=== PATIENT | female | born 1990 | race African-American/Black ===

== ENCOUNTER 2016-10-16 07:47 | Day surgery (SDC) | payer OTHER ==
[~2016-10-16] VITALS: Ht 162.6 cm; Wt 74.8 kg
[~2016-10-16 07:47] MED LIST: ACETAMINOPHEN INTRAVENOUS 100 ML IV ONE; CYCL10TA2 PO; DICY10CA53 PO; DOXY100C14 PO; FAMO20TA5 PO; FENTANYL PF 100 MCG/2 ML VIAL. IV PRN; HYDROMORPHONE 2 MG/ML VIAL. IV PRN; IV RINGERS,LACTATED 1000ML 1,000 ML IV SCH; LIDOCAINE 1% 1 ML SYRINGE. ID PRN; MOME13HF2 IH; MORPHINE SULFATE 2 MG/ML DISP.SYRIN. IV PRN; ONDA4TAB10 SL; ONDA4TAB7 PO; ONDANSETRON PF 4 MG/2 ML VIAL. IV PRN; PROAIR HFA8.5 GM INH; PROCHLORPERAZINE 10 MG/2 ML VIAL. IV PRN
[2016-10-16 08:22] LABS: NEG OBC UR NEG; POS OBC UR POS
[2016-10-16] MEDS ORDERED: PROPOFOL 20 ML IV ONE ×2 (08:34→09:25)
[2016-10-16] MEDS ORDERED: DEXAMETHASONE SOD PHOS 20 MG/5 ML VIAL. ONE (08:34)
[2016-10-16] MEDS ORDERED: LIDOCAINE 2% 100 MG/5 ML DISP.SYRIN. ONE (08:34)
[2016-10-16] MEDS ORDERED: FAMOTIDINE 20 MG/2 ML VIAL ONE (08:35)
[2016-10-16] MEDS ORDERED: MIDAZOLAM HCL 2 MG/2 ML VIAL. ONE (08:35)
[2016-10-16] MEDS ORDERED: ROCURONIUM 50 MG/5 ML VIAL. ONE (08:35)
[2016-10-16] MEDS ORDERED: ONDANSETRON PF 4 MG/2 ML VIAL. ONE (08:35)
[2016-10-16] MEDS ORDERED: FENTANYL PF 100 MCG/2 ML VIAL. ONE (08:35)
[2016-10-16] MEDS ORDERED: BUPIVACAINE-EPI 0.25%-1:200000 50 ML VIAL. ONE (08:39)
[2016-10-16] MEDS ORDERED: SUCCINYLCHOLINE 200 MG/10 ML VIAL. ONE (08:39)
[2016-10-16] MEDS ORDERED: SEVOFLURANE 16 TO 30 MINUTES. IH ONE (09:27)
[2016-10-16] MEDS ORDERED: SEVOFLURANE 31 TO 60 MINUTES. IH ONE (09:28)
--- NOTE | 2016-10-16 09:34 | PDOC ---
BRIEF OPERATIVE NOTE Date: Oct 16, 2016 Pre-Op Diagnosis Infected pilonidal cyst Post-Op Diagnosis Same Procedure Performed I&D Pilonidal Surgeon Jeremiah Anesthesia Type: General Blood Loss 5ml Specimens Obtained Cultures Findings As above Complications None DANIEL SHAFFER MD Oct 16, 2016 09:34
--- NOTE | 2016-10-16 09:36 | DISCH ---
DISCHARGE INSTRUCTIONS Condition on Discharge Condition on Discharge: Stable Activity After Discharge Activity Instructions for Disc: Activity as tolerated Other activity instructions: May shower in 24 hours Diet after Discharge Diet after Discharge: Regular Wound Incision Care Other wound/incision instructi: Packing needs to be changed daily Contacting the after DC Call your doctor for: If your condition worsens Follow-Up Follow up with: Dr Shaffer in 1 week 10/22 DANIEL SHAFFER MD Oct 16, 2016 09:36
--- NOTE | 2016-10-16 09:47 | OP ---
DATE OF SURGERY: 10/16/2016 PREOPERATIVE DIAGNOSIS: Infected pilonidal cyst. POSTOPERATIVE DIAGNOSIS: Infected pilonidal cyst. PROCEDURE: Incision and drainage of abscess with cultures and wound packing. INDICATIONS: The patient is a 25-year-old female who had a pilonidal cystectomy, approximately 3 years ago, has recently developed painful swelling in this area. Procedure of incision and drainage was explained to the patient in detail. Risks, benefits were also discussed including bleeding, infection. Alternatives of this procedure were also discussed with the patient who seemed to understand and gave verbal and written consent to have the procedure performed. DESCRIPTION OF PROCEDURE: The patient was taken to the operating room and placed in supine position. General anesthesia was initiated. Once the patient was asleep and intubated, she was repositioned in the prone positioning. Her buttock was prepped and draped in sterile fashion using Betadine scrub and solution. The infected pilonidal cyst was incised with 15-blade scalpel. There was copious amounts of purulent material, cultures were taken. The wound was then irrigated and suctioned dry and half-inch iodoform packing was placed, 4 x 4's and Medipore tape were applied as a dressing. The patient was repositioned in her supine position, awakened, extubated in the operating room, taken to recovery in stable condition. All sponge, instrument counts listed as correct. Estimated blood loss 5 mL. DANIEL SHAFFER MD DR: GISELA/isaura JOB#: [id number] / [id number]
[2016-10-16] MEDS ORDERED: OXYC-323 PO (10:02)
[2016-10-16] MEDS ORDERED: OXYCODONE/APAP 5/325 TABLET. PO PRN (10:15)
[2016-10-16 10:55] VITALS: BP 97/60
== END 2016-10-16 11:04 | disposition home or self-care (01) ==
LOC: SURG 07:47
PROVIDERS: ATTEND Surgery
DX: L05.01 Pilonidal cyst with abscess (principal); J45.909 Unspecified asthma, uncomplicated; E03.9 Hypothyroidism, unspecified; F41.9 Anxiety disorder, unspecified; F32.9 Major depressive disorder, single episode, unspecified; Z72.89 Other problems related to lifestyle; Z87.440 Personal history of urinary (tract) infections; Z98.890 Other specified postprocedural states
CPT/HCPCS: 10080; 81025; 87205; J0131; J0330; J1100; J1956; J2250; J2405; J2704; J3010; S0028

== ENCOUNTER 2017-01-29 09:08 | Emergency (ER) | payer OTHER ==
[~2017-01-29] VITALS: Ht 162.6 cm; Wt 68.0 kg
[~2017-01-29 09:08] MED LIST changes: -ACETAMINOPHEN INTRAVENOUS 100 ML IV ONE; -FENTANYL PF 100 MCG/2 ML VIAL. IV PRN; -HYDROMORPHONE 2 MG/ML VIAL. IV PRN; -IV RINGERS,LACTATED 1000ML 1,000 ML IV SCH; -LIDOCAINE 1% 1 ML SYRINGE. ID PRN; -MORPHINE SULFATE 2 MG/ML DISP.SYRIN. IV PRN; -ONDANSETRON PF 4 MG/2 ML VIAL. IV PRN; +OXYC-323 PO; -PROCHLORPERAZINE 10 MG/2 ML VIAL. IV PRN
[2017-01-29] MEDS ORDERED: ONDANSETRON PF 4 MG/2 ML VIAL. IV ONE (09:30)
[2017-01-29] MEDS ORDERED: IV NORMAL SALINE 1000ML BAG 1,000 ML IV SCH ×2 (09:30→10:00)
[2017-01-29 09:36] LABS: BASO # 0.1 x10^3/uL (0.0-0.2); BASO % 0 % (0-3); EOS % 0 % (0-3); HEMATOCRIT 44.7 % (36.0-47.0); HEMOGLOBIN 15.7 g/dL (12.0-15.5); LYMPH # 2.6 x10^3/uL (1.0-4.8); LYMPH % 14 % (24-48); MEAN CORPUSCULAR HEMOGLOBIN 29 pg (25-35); MEAN CORPUSCULAR HGB CONC 35 g/dL (31-37); MEAN CORPUSCULAR VOLUME 83 fL (79-100); MONO % 3 % (0-9); NEUT % 83 % (31-73); PLATELET COUNT 287 x10^3/uL (140-400); RED CELL DISTRIBUTION WIDTH 13.5 % (11.5-14.5)
--- NOTE | 2017-01-29 09:41 | ED.ADGEN ---
Past Medical History Past Medical History: Anxiety Additional Past Medical Histor: Polycystic Ovary Disease. Past Surgical History: No Surgical History Additional Past Surgical Histo: Cyst removed from lower back. Alcohol Use: Rarely Drug Use: Marijuana Adult General Chief Complaint Chief Complaint: ABDOMINAL PAIN HPI HPI Patient is a 26 year old and, history of anxiety, PCOS, who presents the emergency department via EMS with a complaint of nausea, vomiting, abdominal and chest pain that began several hours ago. Patient states that she was smoking marijuana last night around 9:00, then went to sleep. She states that she was feeling well that time. States she woke up with nausea, vomiting cramping abdominal pain and pain is radiating up into her chest. She states that this is having her previously but cannot give additional details. Patient diaphoretic, states that she has had a small bowel movement this morning, denies any gross diarrhea. No fevers, no chills, no focal weakness, numbness, tingling, headache, injuries, sick contacts, other ingestions or exposures reported. No recent travel or surgery. Denies any alcohol or other drug use, states she was only using marijuana. Review of Systems Review of Systems Constitutional: Denies fever or chills. [] Eyes: Denies change in visual acuity. [] HENT: Denies nasal congestion or sore throat. [] Respiratory: Denies cough or shortness of breath. [] Cardiovascular: Chest pain with vomiting, no edema. GI: Ramp being abdominal pain associate with nausea, vomiting, diarrhea, pain radiating up into her chest. : Denies dysuria. [] Musculoskeletal: Denies back pain or joint pain. [] Integument: Denies rash. [] Neurologic: Denies headache, focal weakness or sensory changes. [] Endocrine: Denies polyuria or polydipsia. [] Lymphatic: Denies swollen glands. [] Psychiatric: Denies depression or anxiety. [] Current Medications Current Medications Current Medications Medications (Trade) Dose Ordered Sig/Kiya Start Time Stop Time Status Last Admin Dose Admin Capsaicin (Zostrix) 1 zuri TID 01/29/17 14:00 01/29/17 14:12 DC 01/29/17 13:28 1 ZURI Haloperidol Lactate (Haldol) 5 mg 1X ONCE 01/29/17 09:45 01/29/17 09:46 DC 01/29/17 10:01 5 MG Info (Do NOT chart on this entry -- for MONITORING) 1 each PRN DAILY PRN 01/29/17 12:15 01/29/17 14:12 DC Iohexol (Omnipaque 300 Mg/ml) 75 ml 1X ONCE 01/29/17 12:00 01/29/17 12:01 DC 01/29/17 12:09 75 ML Ketorolac Tromethamine (Toradol) 10 mg 1X ONCE 01/29/17 12:00 01/29/17 12:01 DC 01/29/17 12:27 10 MG Ondansetron HCl (Zofran) 4 mg 1X ONCE 01/29/17 09:30 01/29/17 09:31 DC 01/29/17 09:22 4 MG Sodium Chloride 1,000 ml @ 1,000 mls/hr Q1H 01/29/17 10:00 01/29/17 10:59 DC 01/29/17 10:51 1,000 MLS/HR Allergies Allergies Allergies Coded Allergies Type Severity Reaction Last Updated Verified Penicillins Allergy Severe Anaphylaxis 10/15/16 Yes coconut Allergy Severe Anaphylaxis 10/15/16 Yes Physical Exam Physical Exam Constitutional: Well developed, well nourished, patient appears uncomfortable, is diaphoretic, non-toxic appearance. [] HENT: Normocephalic, atraumatic, bilateral external ears normal, oropharynx moist, no oral exudates, nose normal. [] Eyes: PERRLA, EOMI, conjunctiva normal, no discharge. [] Neck: Normal range of motion, no tenderness, supple, no stridor. [] Cardiovascular:Heart rate regular rhythm, no murmur, S1, S2, no rubs or gallops. [] Lungs & Thorax: Bilateral breath sounds clear to auscultation, no wheezing, rhonchi, rales. [] No chest wall crepitus or tenderness. Abdomen: Bowel sounds normal, soft, patient complaining of diffuse tenderness, abdomen is soft, no masses, no pulsatile masses. [] Skin: Warm, diaphoretic, no erythema, no rash. [] Back: No tenderness, no CVA tenderness. [] Extremities: No tenderness, no cyanosis, no clubbing, ROM intact, no edema. [ Negative Homans sign.] Neurologic: Alert and oriented X 3, normal motor function, normal sensory function, no focal deficits noted. [] Psychologic: Affect normal, judgement normal, mood normal. [] Current Patient Data Vital Signs Vital Signs Date Time Temp Pulse Resp B/P (MAP) Pulse Ox O2 Delivery O2 Flow Rate FiO2 01/29/17 13:08 48 16 108/57 (74) 99 Room Air 01/29/17 09:11 98.2 98.2 Lab Values Laboratory Tests Test 01/29/17 08:59 01/29/17 09:15 01/29/17 10:00 POC Urine HCG, Qualitative Hcg negative (Negative) White Blood Count 19.0 x10^3/uL (4.0-11.0) H Red Blood Count 5.40 x10^6/uL (3.50-5.40) Hemoglobin 15.7 g/dL (12.0-15.5) H Hematocrit 44.7 % (36.0-47.0) Mean Corpuscular Volume 83 fL (79-100) Mean Corpuscular Hemoglobin 29 pg (25-35) Mean Corpuscular Hemoglobin Concent 35 g/dL (31-37) Red Cell Distribution Width 13.5 % (11.5-14.5) Platelet Count 287 x10^3/uL (140-400) Neutrophils (%) (Auto) 83 % (31-73) H Lymphocytes (%) (Auto) 14 % (24-48) L Monocytes (%) (Auto) 3 % (0-9) Eosinophils (%) (Auto) 0 % (0-3) Basophils (%) (Auto) 0 % (0-3) Neutrophils # (Auto) 15.9 x10^3uL (1.8-7.7) H Lymphocytes # (Auto) 2.6 x10^3/uL (1.0-4.8) Monocytes # (Auto) 0.5 x10^3/uL (0.0-1.1) Eosinophils # (Auto) 0.0 x10^3/uL (0.0-0.7) Basophils # (Auto) 0.1 x10^3/uL (0.0-0.2) Segmented Neutrophils % 82 % (35-66) H Band Neutrophils % 3 % (0-9) Lymphocytes % 13 % (24-48) L Monocytes % 2 % (0-10) Platelet Estimate Adequate (ADEQUATE) Sodium Level 144 mmol/L (136-145) Potassium Level 3.7 mmol/L (3.5-5.1) Chloride Level 106 mmol/L (98-107) Carbon Dioxide Level 16 mmol/L (21-32) L Anion Gap 22 (6-14) H Blood Urea Nitrogen 18 mg/dL (7-20) Creatinine 1.4 mg/dL (0.6-1.0) H Estimated GFR (Cockcroft-Gault) 55.4 BUN/Creatinine Ratio 13 (6-20) Glucose Level 189 mg/dL (70-99) H Calcium Level 10.9 mg/dL (8.5-10.1) H Total Bilirubin 0.7 mg/dL (0.2-1.0) Aspartate Amino Transferase (AST) 17 U/L (15-37) Alanine Aminotransferase (ALT) 22 U/L (14-59) Alkaline Phosphatase 77 U/L (46-116) Total Protein 8.8 g/dL (6.4-8.2) H Albumin 5.2 g/dL (3.4-5.0) H Albumin/Globulin Ratio 1.4 (1.0-1.7) Lipase 108 U/L (73-393) Serum Test, Qualitative Negative (NEG) Urine Collection Type U cath Urine Color [place] Urine Clarity Cloudy Urine pH 6.0 Urine Specific [place] >=1.030 Urine Protein >=300 mg/dL (NEG-TRACE) Urine Glucose (UA) 100 mg/dL (NEG) Urine Ketones (Stick) >=80 mg/dL (NEG) Urine Blood Negative (NEG) Urine Nitrite Negative (NEG) Urine Bilirubin Small (NEG) Urine Urobilinogen Dipstick 1.0 mg/dL (0.2 mg/dL) Urine Leukocyte Esterase Small (NEG) Urine RBC 1-2 /HPF (0-2) Urine WBC 5-10 /HPF (0-4) Urine Squamous Epithelial Cells Many /LPF Urine Renal Epithelial Cells Few /LPF Urine Bacteria Mod /HPF (0-FEW) Urine Hyaline Casts Few /HPF Urine Granular Casts Few /HPF Urine Mucus Marked /LPF Urine Opiates Screen Neg (NEG) Urine Methadone Screen Neg (NEG) Urine Barbiturates Neg (NEG) Urine Phencyclidine Screen Neg (NEG) Urine Amphetamine/Methamphetamine Neg (NEG) Urine Benzodiazepines Screen Neg (NEG) Urine Cocaine Screen Neg (NEG) Urine Cannabinoids Screen Pos (NEG) Urine Ethyl Alcohol Neg (NEG) Laboratory Tests 01/29/17 09:15 Laboratory Tests 01/29/17 09:15 EKG EKG EC: Sinus rhythm, heart rate 58 beats minute, upright axis, mild baseline artifact due to to respiratory motion, QTC of 453, GA 136, no ST elevations or depressions, no evidence of acute ST abnormalities. As interpreted by me. [] Radiology/Procedures Radiology/Procedures [][facility] [id number] [place] [address] IMAGING REPORT Signed PATIENT: CHERYL RIDER ACCOUNT: [id number] : 1990 LOCATION: ER AGE: 26 SEX: F EXAM STATUS: REG ER ORD. PHYSICIAN: TEJINDER JUDD DO REASON: abd pain/cp/n/v, PROCEDURE: ACUTE ABDOMEN SERIES Indication abdominal pain nausea vomiting. Chest pain. A single view of the chest was obtained as well as flat and upright films of the abdomen. The chest is compared to an examination 03/13/2016. Note is made of a CT examination of the abdomen and pelvis 03/19/2016. The heart and pulmonary vessels appear normal. The mediastinum has a normal appearance. The lungs are clear. There has not been a significant change in the appearance of the chest compared to the previous exam. There is no free air. The abdominal gas pattern has a nonobstructive appearance. No organomegaly or definite abnormal calculi are seen. Phleboliths are noted in the left pelvis. IMPRESSION: No acute or significant finding seen in the chest or abdomen on plain films DICTATED and SIGNED BY: GIANFRANCO BURROWS MD DATE: 01/29/171125 CC: FREYA JACOBS MD; TEJINDER JUDD DO ~ Impressions: [facility] [address] [place] [address] IMAGING REPORT Signed PATIENT: CHERYL RIDER ACCOUNT: [id number] : 1990 LOCATION: ER AGE: 26 SEX: F EXAM STATUS: REG ER ORD. PHYSICIAN: TEJINDER JUDD DO REASON: Abd pain/n/v PROCEDURE: CT ABD PELV W/ IV CONTRST ONLY Indication abdominal pain. Nausea and vomiting. Axial images through the abdomen and pelvis were obtained. Proximally 75 cc of Omnipaque 300 was administered intravenously. No oral contrast was administered. Comparison is made to a prior exam 03/19/2016. The lung bases are clear. A focal mass lesion in the liver is not seen. There is suggested mild periportal edema. This is a nonspecific finding but can be seen in patients with hepatic disease. The spleen is unremarkable. The gallbladder appears grossly normal. No pancreatic abnormality is seen. The adrenal glands and kidneys appear normal. No mass or inflammatory process in the pelvis is seen. IMPRESSION: Suggested mild periportal edema. This is a nonspecific finding but can be seen in patients with hepatic disease. Clinical correlation advised DICTATED and SIGNED BY: GIANFRANCO BURROWS MD DATE: 01/29/17 1223 CC: FREYA JACOBS MD; TEJINDER JUDD DO ~ Course & Med Decision Making Course & Med Decision Making Pertinent Labs and Imaging studies reviewed. (See chart for details) Patient admits to smoking a large amount of marijuana last night, prior to symptoms developing early this morning. Multiple episodes of emesis, is diaphoretic stated in the ED. Patient was given Haldol, Zofran, with cessation of her nausea and vomiting, and diaphoresis. On reevaluation she is still complaining of cramping abdominal pain throughout her abdomen, after receiving Toradol, she is still complaining of the same symptoms. Patient noted to have a leukocytosis of 19, and a left shift with a slight bandemia, also a creatinine of 1.4, with evidence of mild dehydration and ketones in her urine. No evidence of infection in the urine. I do believe these findings are most consistent with an acute phase reaction for the patient's persistent vomiting, which I believe is due to her wanting use, however after discussion due to her persistent symptoms a CT of the abdomen and pelvis was obtained. This revealed evidence of potential mild sarah hepatic edema, no other concerning findings were identified. Patient remains emesis free in the ED resting comfortably after receiving Haldol, did discuss concern for the ill effects of marijuana abuse the patient, patient voiced understanding. She is feeling better at this time, ambulates without difficulty, also is receive capsaicin cream to the abdomen with improved symptoms. Discussion at bedside regarding return precautions and instructions, and ill effects of illicit substance abuse. Patient discharged home in stable condition. Dragon Disclaimer Dragon Disclaimer This electronic medical record was generated, in whole or in part, using a voice recognition dictation system. Departure Impression: Primary Impression: Marijuana abuse Additional Impression: Nausea & vomiting Disposition: 01 HOME, SELF-CARE Condition: IMPROVED Problem Qualifiers TEJINDER JUDD DO Jan 29, 2017 09:41
[2017-01-29 09:44] LABS: CALCIUM 10.9 mg/dL (8.5-10.1); CREATININE 1.4 mg/dL (0.6-1.0); GFR 55.4; POTASSIUM 3.7 mmol/L (3.5-5.1)
[2017-01-29] MEDS ORDERED: HALOPERIDOL LACTATE 5 MG/ML VIAL. IVP ONE (09:45)
[2017-01-29 09:49] LABS: ALBUMIN 5.2 g/dL (3.4-5.0); ALBUMIN/GLOBULIN RATIO 1.4 (1.0-1.7); TOTAL BILIRUBIN 0.7 mg/dL (0.2-1.0); TOTAL PROTEIN 8.8 g/dL (6.4-8.2)
[2017-01-29 10:16] LABS: BILIRUBIN,URINE SMALL (NEG); GLUCOSE,URINE 100 mg/dL (NEG); NITRITE,URINE NEGATIVE (NEG); PROTEIN,URINE >=300 mg/dL (NEG-TRACE)
[2017-01-29 10:18] LABS: BARBITURATES NEG (NEG); BENZODIAZEPINES NEG (NEG); CANNABINOIDS POS (NEG); COCAINE NEG (NEG); METHADONE NEG (NEG); OPIATES NEG (NEG); PHENCYCLIDINE NEG (NEG)
[2017-01-29 10:21] LABS: NEG OBC SER NEG; POS OBC SER POS
[2017-01-29 10:32] LABS: BACTERIA,URINE MOD /HPF (0-FEW); SQUAMOUS EPITHELIAL CELL,UR MANY /LPF
--- NOTE | 2017-01-29 10:44 | ACF ---
Admit Criteria Forms Admit Criteria Forms Admit Criteria Forms ABDOMINAL PAIN Clinical Indications for Admission to Inpatient Care (Place 'X' for any and all applicable criteria): Admission is indicated for ANY ONE of the following(1)(2)(3)(4)(5): [ ]I. Inpatient admission required rather than observation care (Also use Abdominal Pain: Observation Care, as appropriate) because of ANY ONE of the following: [ ]a) Severe pain requiring acute inpatient management [ ]b) Identification of etiology/finding that requires inpatient care (eg, aortic dissection, free air) [ ]c) Absent bowel sounds with complete ileus(6) [ ]d) Suspected toxic megacolon [ ]e) Severe electrolyte abnormalities requiring inpatient care [ ]f) High fever or infection requiring inpatient admission as indicated by ANY ONE of following(7)(8): [ ] i) Appropriate outpatient or observational care antimicrobial treatment unavailable, not effective, or not feasible [ ] ii) Documented bacteremia [ ] iii) Temperature > 104.9 degrees F (oral) [ ] iv) T >103.1 F (oral) or < 96.8 F(rectal) that does not respond to all emergency treatment measures [ ]g) Signs of intestinal obstruction [B] [ ]h) Hemodynamic instability [ ]i) IV fluid to replace significant ongoing losses (greater than 3 L/m2 per day) (12)(13) [ ]j) Percutaneous or open drainage (eg, abscess, biliary tract ) procedures [ ]k) Parenteral nutrition regimen that must be implemented on inpatient basis [ ]l) Other condition,treatment or monitoring requiring inpatient admission. [ ]II. Peritoneal signs present [ ]III. Surgery needed that cannot be performed on an ambulatory basis. [ ]IV. Evaluation requires patient to not eat or drink for extended period ( eg, more than 24 hours). [ ]V. Contraindications and/or Inappropriate clinical situations for Observational Care in patients with abdominal pain, when ANY ONE of the following is required: [ ]a) Thorough evaluation is required to prevent catastrophic events due to delays in diagnosing (e.g.Mesenteric ischemia) 1,3 [ ]b) Patient with severe pathology or with chronic symptoms unlikely to improve in the ED stay (3) [X]. General contraindications and/or Inappropriate clinical situations for Observational Care in patients with abdominal pain, when ANY ONE of the following is required: [ X]a) Prediction of prolongation of LOS based on ANY ONE of the following may be considered as a contraindication for observational care 2, 3, 4, 5, 6, 7, 8, 9, 10, 11 [ ]i) Age > 65 yrs. [X ]ii) Patient arriving by ambulance [ ]iii) Patient with high acuity [ ]iv) Patient requiring vital sign monitoring [ ]v) Patient on IV medication [ ]b) Systolic blood pressures 180mmHg 3,12 [ ]c) Patient with altered mental status including delirium and other alteration of consciousness, (3) [ ]d) Patient whose discharge disposition will be to a half-way home or rehabilitation home should not be managed in Emergency Department Observation Unit. CMS rule requires 3 days hospital stay before such placement.3,13 [ ]e) Patient with failure to thrive due to broad array of etiologies 3,16,17 [ ]f) Inability to ambulate 3,14 Extended stay beyond goal length of stay may be needed for(2)(3): [ ]a) Persistent abdominal pain with suspected intra-abdominal process [ ]b) Diagnosed condition requiring continued stay (e.g., pancreatitis, complicated diverticulitis) [ ]c) Surgery (e.g., colectomy) The original [employer] content created by [employer] has been revised. The portions of the content which have been revised are identified through the use of italic text or in bold, and [facility] has neither reviewed nor approved the modified material.All other unmodified content is copyright [employer]. Please see references footnoted in the original [employer] edition 2016 KISHAN VACA Jan 29, 2017 10:44
--- NOTE | 2017-01-29 10:54 | EKG ---
[facility] [address] [place] [address] Test Date: 2017-01-29 Test Time: 09:11:24 Pat Name: CHERYL RIDER Department: Room: Gender: F Field Manager: JEREMI : 1990 Requested By: TEJINDER JUDD Order Number: [id number] Reading MD: Ray Torres Measurements Intervals [place] Rate: 58 P: 36 [place]: 136 QRS: 70 QRSD: 98 T: 52 QT: 458 QTc: 453 Interpretive Statements SINUS RHYTHM NONSPECIFIC ST-T WAVE CHANGES. RI6.01 Unconfirmed report Compared to ECG 03/14/2016 03:53:20 No significant changes Electronically Signed On 02-03-2017 9:29:04 CDT by Ray Torres
[2017-01-29 11:02] LABS: PLT ESTIMATE ADEQUATE (ADEQUATE)
--- NOTE | 2017-01-29 11:31 | RAD ---
Indication abdominal pain nausea vomiting. Chest pain. A single view of the chest was obtained as well as flat and upright films of the abdomen. The chest is compared to an examination 03/13/2016. Note is made of a CT examination of the abdomen and pelvis 03/19/2016. The heart and pulmonary vessels appear normal. The mediastinum has a normal appearance. The lungs are clear. There has not been a significant change in the appearance of the chest compared to the previous exam. There is no free air. The abdominal gas pattern has a nonobstructive appearance. No organomegaly or definite abnormal calculi are seen. Phleboliths are noted in the left pelvis. IMPRESSION: No acute or significant finding seen in the chest or abdomen on plain films
[2017-01-29] MEDS ORDERED: IOHEXOL 300 MG/ML 75 ML VIAL IV ONE (12:00)
[2017-01-29] MEDS ORDERED: KETOROLAC 15 MG/ML VIAL. IV ONE (12:00)
[2017-01-29] MEDS ORDERED: CONTRAST GIVEN MC PRN (12:15)
--- NOTE | 2017-01-29 12:33 | RAD ---
Indication abdominal pain. Nausea and vomiting. Axial images through the abdomen and pelvis were obtained. Proximally 75 cc of Omnipaque 300 was administered intravenously. No oral contrast was administered. Comparison is made to a prior exam 03/19/2016. The lung bases are clear. A focal mass lesion in the liver is not seen. There is suggested mild periportal edema. This is a nonspecific finding but can be seen in patients with hepatic disease. The spleen is unremarkable. The gallbladder appears grossly normal. No pancreatic abnormality is seen. The adrenal glands and kidneys appear normal. No mass or inflammatory process in the pelvis is seen. IMPRESSION: Suggested mild periportal edema. This is a nonspecific finding but can be seen in patients with hepatic disease. Clinical correlation advised
[2017-01-29 13:08] VITALS: BP 108/57
[2017-01-29] MEDS ORDERED: CAPSAICIN 0.025% TOPICAL CREAM 60GM TUBE. TP SCH (14:00)
== END 2017-01-29 14:01 | disposition home or self-care (01) ==
LOC: ER 09:08
DX: F12.10 Cannabis abuse, uncomplicated (principal); R11.2 Nausea with vomiting, unspecified; R07.89 Other chest pain; R10.84 Generalized abdominal pain; R19.7 Diarrhea, unspecified; R61 Generalized hyperhidrosis; D72.829 Elevated white blood cell count, unspecified; D72.825 Bandemia; E86.0 Dehydration; F41.9 Anxiety disorder, unspecified; E28.2 Polycystic ovarian syndrome; Z91.018 Allergy to other foods; Z88.0 Allergy status to penicillin
CPT/HCPCS: 36415; 74022; 74177; 80053; 80305; 80320; 81001; 81025; 83690; 84703; 85007; 85027; 93005; 96361; 96374; 96375; 99285; J1630; J1885; J2405; J7030; Q9967; G0481

== ENCOUNTER 2020-03-15 23:01 | Emergency (ER) | payer SELFPAY ==
[~2020-03-15] VITALS: Ht 162.6 cm; Wt 77.2 kg
[~2020-03-15 23:01] MED LIST changes: +ACET325T9 PO; +ALBU2.5V8 IH; +ALBU2.5V8 INH; +CIPR500T94 PO; +CITA20TA6 PO; +DOCU-153 PO; +HYDR25TA PO; +METF500T16 PO; +METR500T PO; -OXYC-323 PO; +OXYC1TAB15 PO; +OXYC5TAB4 PO; -PROAIR HFA8.5 GM INH; +SPIR25TA5 PO
--- NOTE | 2020-03-16 00:19 | PHYS DOC ---
Past Medical History Past Medical History: Anxiety Additional Past Medical Histor: Polycystic Ovary Disease. Past Surgical History: No Surgical History Additional Past Surgical Histo: Cyst removed from lower back. Smoking Status: Former Smoker Alcohol Use: None Drug Use: Marijuana General Adult EDM: Chief Complaint: NAUSEA/VOMITING/DIARRHA HPI: HPI: Patient is a 29 year old female who presents with nausea vomiting. Patient was admitted to from Wednesday and was discharged at 10:00 on Wednesday due to a family emergency. Patient states she had bad urinary infection and elevated creatinine. Patient continues to complain of nausea vomiting. Patient also some abdominal pain. Patient went back to and waited for 5 hours and was not seen so she came here for evaluation. Patient denies any fever, cough but does have nausea vomits worse with eating. Review of Systems: Review of Systems: Constitutional: Denies fever or chills. [] Eyes: Denies change in visual acuity. [] HENT: Denies nasal congestion or sore throat. [] Respiratory: Denies cough or shortness of breath. [] Cardiovascular: Denies chest pain or edema. [] GI: Complains abdominal pain nausea and vomiting : dysuria. [] Musculoskeletal: Denies back pain or joint pain. [] Integument: Denies rash. [] Neurologic: Denies headache, focal weakness or sensory changes. [] Endocrine: Denies polyuria or polydipsia. [] Lymphatic: Denies swollen glands. [] Psychiatric: Denies depression or anxiety. [] Heart Score: Risk Factors: Risk Factors: DM, Current or recent (<one month) smoker, HTN, HLP, family history of CAD, obesity. Risk Scores: Score 0 - 3: 2.5% MACE over next 6 weeks - Discharge Home Score 4 - 6: 20.3% MACE over next 6 weeks - Admit for Clinical Observation Score 7 - 10: 72.7% MACE over next 6 weeks - Early Invasive Strategies Current Medications: Current Medications Medications (Trade) Dose Ordered Sig/Kiya Start Time Stop Time Status Last Admin Dose Admin Ondansetron HCl (Zofran) 4 mg 1X ONCE 03/16/20 00:15 03/16/20 00:16 UNV Sodium Chloride 1,000 ml @ 1,000 mls/hr Q1H 03/16/20 00:13 03/16/20 01:12 UNV Allergies: Allergies: Allergies Coded Allergies Type Severity Reaction Last Updated Verified Penicillins Allergy Severe Anaphylaxis 10/15/16 Yes coconut Allergy Severe Anaphylaxis 10/15/16 Yes Physical Exam: PE: Constitutional: Well developed, well nourished, no acute distress, non-toxic appearance. [] HENT: Normocephalic, atraumatic, bilateral external ears normal, oropharynx moist, no oral exudates, nose normal. [] Eyes: PERRLA, EOMI, conjunctiva normal, no discharge. [] Neck: Normal range of motion, no tenderness, supple, no stridor. [] Cardiovascular:Heart rate regular rhythm, no murmur [] Lungs & Thorax: Bilateral breath sounds clear to auscultation [] Abdomen: Abdomen soft with diffuse lower abdominal tenderness. No guarding or rebound. Skin: Warm, dry, no erythema, no rash. [] Back: No tenderness, no CVA tenderness. [] Extremities: No tenderness, no cyanosis, no clubbing, ROM intact, no edema. [] Neurologic: Alert and oriented X 3, normal motor function, normal sensory function, no focal deficits noted. [] Psychologic: Affect normal, judgement normal, mood normal. [] Current Patient Data: Labs: Laboratory Tests Test 03/16/20 00:13 03/16/20 00:23 Urine Collection Type Unknown Urine Color Yellow Urine Clarity Clear Urine pH 6.0 Urine Specific [place] 1.015 Urine Protein Negative mg/dL Urine Glucose (UA) Negative mg/dL Urine Ketones (Stick) >=80 mg/dL Urine Blood Negative Urine Nitrite Negative Urine Bilirubin Negative Urine Urobilinogen Dipstick 1.0 mg/dL Urine Leukocyte Esterase Trace Urine RBC 1-2 /HPF Urine WBC 5-10 /HPF Urine Squamous Epithelial Cells Few /LPF Urine Bacteria Moderate /HPF White Blood Count 12.4 x10^3/uL Red Blood Count 4.71 x10^6/uL Hemoglobin 14.0 g/dL Hematocrit 40.3 % Mean Corpuscular Volume 86 fL Mean Corpuscular Hemoglobin 30 pg Mean Corpuscular Hemoglobin Concent 35 g/dL Red Cell Distribution Width 13.2 % Platelet Count 161 x10^3/uL Neutrophils (%) (Auto) 73 % Lymphocytes (%) (Auto) 19 % Monocytes (%) (Auto) 8 % Eosinophils (%) (Auto) 0 % Basophils (%) (Auto) 0 % Neutrophils # (Auto) 9.0 x10^3/uL Lymphocytes # (Auto) 2.4 x10^3/uL Monocytes # (Auto) 1.0 x10^3/uL Eosinophils # (Auto) 0.0 x10^3/uL Basophils # (Auto) 0.0 x10^3/uL Sodium Level 136 mmol/L Potassium Level 3.2 mmol/L Chloride Level 99 mmol/L Carbon Dioxide Level 22 mmol/L Anion Gap 15 Blood Urea Nitrogen 11 mg/dL Creatinine 1.0 mg/dL Estimated GFR (Cockcroft-Gault) 79.9 BUN/Creatinine Ratio 11 Glucose Level 81 mg/dL Calcium Level 9.0 mg/dL Total Bilirubin 1.2 mg/dL Aspartate Amino Transf (AST/SGOT) 15 U/L Alanine Aminotransferase (ALT/SGPT) 25 U/L Alkaline Phosphatase 56 U/L Total Protein 7.1 g/dL Albumin 4.1 g/dL Albumin/Globulin Ratio 1.4 Lipase 77 U/L Current Medications Medications (Trade) Dose Ordered Sig/Kiya Route PRN Reason Start Time Stop Time Status Last Admin Dose Admin Sodium Chloride 1,000 ml @ 1,000 mls/hr Q1H IV 03/16/20 00:30 03/16/20 01:29 DC 03/16/20 00:54 Ondansetron HCl (Zofran) 4 mg 1X ONCE IVP 03/16/20 00:30 03/16/20 00:31 DC 03/16/20 00:54 Potassium Chloride (Klor-Con) 20 meq 1X ONCE PO 03/16/20 02:00 03/16/20 02:01 EKG: EKG: [] Radiology/Procedures: Radiology/Procedures: [] Course & Med Decision Making: Course & Med Decision Making Pertinent Labs and Imaging studies reviewed. (See chart for details) []1:40 resting comfortably, no distress no vomiting Patient has antibiotics at home. Patient has nausea medicine at home. Work-up is reassuring. Patient clinically stable for discharge. Abdominal exam nonsurgical. Patient does not meet inpatient criteria at this time. Dragon Disclaimer: Dragon Disclaimer: This electronic medical record was generated, in whole or in part, using a voice recognition dictation system. Departure Departure Impression: Primary Impression: UTI (urinary tract infection) Additional Impression: Hypokalemia Disposition: 01 HOME, SELF-CARE Condition: STABLE Referrals: NO PCP (PCP) Patient Instructions: Urinary Tract Infection Additional Instructions: EMERGENCY DEPARTMENT GENERAL DISCHARGE INSTRUCTIONS THANK YOU for coming to [facility] Emergency Department (ED) today and trusting us with your care. We trust that you had a positive experience in our Emergency Department. If you wish to speak to the department Management you can contact the department operations manager at . YOUR FOLLOW UP INSTRUCTIONS ARE FOLLOWS: Do you have a private doctor? If you do not have a private doctor, please ask for a resource list of physicians or clinics that may be able to assist you with follow up care. The Emergency Physician has interpreted your x-rays. The X-ray specialist will also review them. If there is a change in the findings you will be notified in 48 hours when at all possible. A lab test or lab culture may have been done, your results will be reviewed and you will be notified if you need a change in treatment. ADDITIONAL INSTRUCTIONS AND INFORMATION Your care today has been supervised by a physician who is specially trained in emergency care. Many problems require more than one evaluation for a complete diagnosis and treatment. We recommend that you schedule your follow up appointment as recommended to ensure complete treatment of your illness or injury. If you are unable to obtain follow up care and continue to have a problem, or if your condition worsens we recommend that you return to the ED. We are not able to safely determine your condition over the phone nor are we able to give sound medical advice over the phone. For these safety reasons, if you call for medical advice we will ask you to come to the ED for further evaluation If you have any questions regarding these discharge instructions please call the ED at . SAFETY INFORMATION In the interest of safety, wellness, and injury prevention; we encourage you to wear your seatbelt, if you smoke; quit smoking, and we encourage your family to use protective helmet for bicycling and other sporting events that present an increased risk for head injury. IF YOUR SYMPTOMS WORSEN OR NEW SYMPTOMS DEVELOP, OR YOU HAVE CONCERNS ABOUT YOUR CONDITION; OR IF YOUR CONDITION WORSENS WHILE YOU ARE WAITING FOR YOUR FOLLOW UP APPOINTMENT; EITHER CONTACT YOUR PRIMARY CARE DOCTOR, THE PHYSICIAN WHOSE NAME AND NUMBER YOU WERE GIVEN, OR RETURN TO THE ED IMMEDIATELY. Justicifation of Admission Dx: Justifications for Admission: Justification of Admission Dx: N/A VINH OKEEFE MD Mar 16, 2020 00:19
[2020-03-16] MEDS ORDERED: ONDANSETRON PF 4 MG/2 ML VIAL. IVP ONE (00:30)
[2020-03-16] MEDS ORDERED: IV NORMAL SALINE 1000ML BAG 1,000 ML IV SCH (00:30)
[2020-03-16 00:48] LABS: BASO % 0 % (0-3); EOS % 0 % (0-3); HEMATOCRIT 40.3 % (36.0-47.0); LYMPH # 2.4 x10^3/uL (1.0-4.8); LYMPH % 19 % (24-48); MEAN CORPUSCULAR HEMOGLOBIN 30 pg (25-35); MEAN CORPUSCULAR HGB CONC 35 g/dL (31-37); MEAN CORPUSCULAR VOLUME 86 fL (79-100); MONO % 8 % (0-9); NEUT % 73 % (31-73); PLATELET COUNT 161 x10^3/uL (140-400); RED BLOOD COUNT 4.71 x10^6/uL (3.50-5.40); RED CELL DISTRIBUTION WIDTH 13.2 % (11.5-14.5); WHITE BLOOD COUNT 12.4 x10^3/uL (4.0-11.0)
[2020-03-16 00:55] LABS: BILIRUBIN,URINE NEGATIVE (NEG); CLARITY,URINE CLEAR; COLOR,URINE YELLOW; NITRITE,URINE NEGATIVE (NEG); PROTEIN,URINE NEGATIVE (NEG-TRACE)
[2020-03-16 01:12] LABS: GFR 79.9; POTASSIUM 3.2 mmol/L (3.5-5.1)
[2020-03-16 01:15] LABS: ALBUMIN 4.1 g/dL (3.4-5.0); ALBUMIN/GLOBULIN RATIO 1.4 (1.0-1.7); TOTAL BILIRUBIN 1.2 mg/dL (0.2-1.0); TOTAL PROTEIN 7.1 g/dL (6.4-8.2)
[2020-03-16 01:17] LABS: BACTERIA,URINE MODERATE /HPF (0-FEW); SQUAMOUS EPITHELIAL CELL,UR FEW /LPF
[2020-03-16] MEDS ORDERED: POTASSIUM CHLORIDE 20 MEQ TABLET.ER. PO ONE (02:00)
[2020-03-16 02:05] VITALS: BP 135/86
[2020-03-16 02:37] LABS: U PREG PATIENT NEGATIVE (NEG)
[2020-03-17] MEDS ORDERED: ONDA4TAB12 PO (21:12)
[2020-03-17] MEDS ORDERED: PROC25SU21 RC (21:12)
[2020-03-17] MEDS ORDERED: SULF1TAB24 PO (21:12)
== END 2020-03-16 02:08 | disposition home or self-care (01) ==
LOC: ER 23:01
DX: N39.0 Urinary tract infection, site not specified (principal); E87.6 Hypokalemia; R11.2 Nausea with vomiting, unspecified; Z87.891 Personal history of nicotine dependence; Z88.0 Allergy status to penicillin; Z91.018 Allergy to other foods
CPT/HCPCS: 36415; 80053; 81001; 81025; 83690; 85025; 87086; 96361; 96374; 99285; J2405; J7030

== ENCOUNTER 2020-03-17 18:44 | Emergency (ER) | payer SELFPAY ==
[~2020-03-17] VITALS: Ht 162.6 cm; Wt 73.0 kg
[2020-03-17] MEDS ORDERED: IV NORMAL SALINE 1000ML BAG 1,000 ML IV SCH (19:13)
[2020-03-17] MEDS ORDERED: ONDANSETRON PF 4 MG/2 ML VIAL. IVP ONE (19:15)
--- NOTE | 2020-03-17 19:28 | PHYS DOC ---
Past Medical History Past Medical History: Anxiety Additional Past Medical Histor: Polycystic Ovary Disease. Past Surgical History: No Surgical History Additional Past Surgical Histo: Cyst removed from lower back. Smoking Status: Current Every Day Smoker Alcohol Use: Occasionally Drug Use: Marijuana General Adult EDM: Chief Complaint: ABDOMINAL PAIN HPI: HPI: Patient is a 29 year old Female who presents with patient was here March 15 and she had previously that same day been at emergency room and she states that s he had to leave they told her before she left that she had a UTI and her kidneys were failing her. She states that she then went back to emergency room but waited 5 hours and did not get back so she came to this emergency room. Here on March 15 she was diagnosed with a UTI but she had already been on antibiotics. She was already on Macrobid, levofloxacin, Compazine, Phenergan of which she states she will not take because it makes her anxiety worse. She states the Compazine helps a little bit. She states she has not been able to keep much fluid or food down. She states that she is still having generalized allover abdominal pain that she states is hard for her to explain the quality of the pain. States her pain is a 9 out of 10. She states it will radiate and wraparound to her flanks bilaterally. Patient's urine micro from March 15 shows no growth. She states she has also not been producing much urine today. I told the patient I will redo her blood work and we will get another urine analysis from her to recheck all of her levels. Review of Systems: Review of Systems: Constitutional: Denies fever or chills. [] Eyes: Denies change in visual acuity. [] HENT: Denies nasal congestion or sore throat. [] Respiratory: Denies cough or shortness of breath. [] Cardiovascular: Denies chest pain or edema. [] GI: abdominal pain, nausea, vomiting, denies bloody stools or diarrhea. [] : Denies dysuria. Not producing urine. [] Musculoskeletal: Bilateral flank back pain or denies joint pain. [] Integument: Denies rash. [] Neurologic: Denies headache, focal weakness or sensory changes. [] Endocrine: Denies polyuria or polydipsia. [] Lymphatic: Denies swollen glands. [] Psychiatric: Denies depression or anxiety. [] Heart Score: Risk Factors: Risk Factors: DM, Current or recent (<one month) smoker, HTN, HLP, family history of CAD, obesity. Risk Scores: Score 0 - 3: 2.5% MACE over next 6 weeks - Discharge Home Score 4 - 6: 20.3% MACE over next 6 weeks - Admit for Clinical Observation Score 7 - 10: 72.7% MACE over next 6 weeks - Early Invasive Strategies Current Medications: Current Medications Medications (Trade) Dose Ordered Sig/Kiya Start Time Stop Time Status Last Admin Dose Admin Ondansetron HCl (Zofran) 4 mg 1X ONCE 03/17/20 19:15 03/17/20 19:16 UNV Sodium Chloride 1,000 ml @ 1,000 mls/hr Q1H 03/17/20 19:13 03/17/20 20:12 UNV Allergies: Allergies: Allergies Coded Allergies Type Severity Reaction Last Updated Verified Penicillins Allergy Severe Anaphylaxis 10/15/16 Yes coconut Allergy Severe Anaphylaxis 10/15/16 Yes Physical Exam: PE: Constitutional: Well developed, well nourished, no acute distress, non-toxic appearance. [] HENT: Normocephalic, atraumatic, bilateral external ears normal, oropharynx moist, no oral exudates, nose normal. [] Eyes: PERRLA, EOMI, conjunctiva normal, no discharge. [] Neck: Normal range of motion, no tenderness, supple, no stridor. [] Cardiovascular:Heart rate regular rhythm, no murmur [] Lungs & Thorax: Bilateral breath sounds clear to auscultation [] Abdomen: Bowel sounds normal, soft, generalized tenderness, no masses, no pulsatile masses. [] Skin: Warm, dry, no erythema, no rash. [] Back: No tenderness, bilateral CVA tenderness. [] Extremities: No tenderness, no cyanosis, no clubbing, ROM intact, no edema. [] Neurologic: Alert and oriented X 3, normal motor function, normal sensory function, no focal deficits noted. [] Psychologic: Affect normal, judgement normal, mood normal. [] EKG: EKG: [] Radiology/Procedures: Radiology/Procedures: [] Impression: [facility] [address] [place] [address] IMAGING REPORT Signed PATIENT: CHERYL RIDER ACCOUNT: [id number] : 1990 LOCATION: ER AGE: 29 SEX: F EXAM STATUS: REG ER ORD. PHYSICIAN: SWAPNA BAZAN APRN REASON: ABD PAIN, NAUSEA, VOMITING, OMNI 300, 60 ML IV PROCEDURE: CT ABD PELV W/ IV CONTRST ONLY EXAM: CT Abdomen and Pelvis with IV contrast CLINICAL HISTORY: ABD PAIN, NAUSEA, VOMITING COMPARISON: 09/22/2019 01/29/2017 TECHNIQUE: Helical CT of the abdomen and pelvis was performed following the administration of IV contrast. Axial, coronal and sagittal reformatted images were generated. ---PQRS compliance statement - One or more of the following individualized dose reduction techniques were utilized for this study: 1. Automated exposure control 2. Adjustment of the mA and/or kV according to patient size 3. Use of iterative reconstruction technique--- FINDINGS: Lower chest: Lung bases are clear. Abdomen and pelvis: Liver and biliary system: Focal low-attenuation along the falciform ligament is seen. High density material dependently within the gallbladder likely sludge. No biliary ductal dilatation. Spleen: Unremarkable Pancreas: Unremarkable Adrenal glands: Unremarkable Kidneys: Symmetric nephrograms. No focal renal lesion. No hydronephrosis. No hydroureter. Lymph nodes/retroperitoneum: No abdominal pelvic lymphadenopathy. Vessels: Aorta is normal in caliber. Bowel/Peritoneal cavity: Moderate colonic stool content is seen. No small or large bowel dilatation. No bowel obstruction. Appendix is not convincingly seen. However no significant right lower quadrant pericecal inflammatory change. No abdominal or pelvic ascites. No abdominal or pelvic lymphadenopathy. Abdominal wall: Small fat-containing periumbilical hernia is seen. Bladder: Bladder is grossly unremarkable. Bones: No aggressive osseous lesion is seen. IMPRESSION: Moderate colonic stool content can be correlated for possible constipation. No abnormal small or large bowel dilatation. No bowel obstruction. No suspicious free or loculated abdominal or pelvic collection. Electronically signed by: Bo Herrera MD (03/17/2020 8:59 PM) [facility] DICTATED and SIGNED BY: BO HERRERA MD DATE: 03/17/202058 Course & Med Decision Making: Course & Med Decision Making Pertinent Labs and Imaging studies reviewed. (See chart for details) Patient denies chest pain, shortness of air, fever, dizziness, headache, vision changes, numbness or tingling, syncope. Patient's abdomen has generalized tenderness throughout all quadrants but is soft. Bilateral CVA tenderness. Speaks in full complete sentences. Alert and oriented. Ambulatory with a steady gait. Skin is pink warm and dry. States some dehydration and a potassium of 3.1. Patient is stable and CT shows no acute findings. I have replaced the potassium here in the ED with 40MEQ of potassium p.o. Patient is gotten 2 L of normal saline. I will send her home with suppository nausea medication and dissolving Zofran. Patient also is positive for marijuana and she is educated that she should stop smoking marijuana due to it can cause hyperemesis. I have spoken to Dr. Rodriguez turning this patient and care plan. He agrees the patient can be sent home. He states that I can change of her antibiotic to Bactrim. [] Cholo Disclaimer: Cholo Disclaimer: This electronic medical record was generated, in whole or in part, using a voice recognition dictation system. Departure Departure Impression: Primary Impression: UTI (urinary tract infection) Qualified Codes: N39.0 - Urinary tract infection, site not specified; R31.9 - Hematuria, unspecified Additional Impressions: Nausea & vomiting Qualified Codes: R11.2 - Nausea with vomiting, unspecified Marijuana abuse Disposition: HOME, SELF-CARE Condition: STABLE Referrals: NO PCP (PCP) Patient Instructions: Cyclic Vomiting Syndrome, Marijuana Abuse-Brief, Nausea and Vomiting Additional Instructions: Follow-up with your primary care provider. Slowly advance your diet starting with clear liquids only. Hydration is more important than food at this time. Stop smoking marijuana as this can also cause abdominal pain and vomiting. Take the Bactrim antibiotic only. Scripts Prochlorperazine Maleate (COMPAZINE) 25 Mg Supp.rect 25 MG RC Q6-8HRS PRN for NAUSEA/VOMITING, #15 SUPP.RECT Prov: SWAPNA BAZAN APRN 03/17/20 Ondansetron (ONDANSETRON ODT) 4 Mg Tab.rapdis 1 TAB PO PRN Q6-8HRS, #16 TAB Prov: SAWPNA BAZAN APRN 03/17/20 Sulfamethoxazole/Trimethoprim (BACTRIM DS TABLET) 1 Each Tablet 1 TAB PO BID for 10 Days, #20 TAB 0 Refills Prov: SWAPNA BAZAN APRN 03/17/20 Justicifation of Admission Dx: Justifications for Admission: Justification of Admission Dx: N/A SWAPNA BAZAN APRN Mar 17, 2020 19:28
[2020-03-17] MEDS ORDERED: IV NORMAL SALINE 1000ML BAG 1,000 ML IV ONE (19:45)
[2020-03-17 19:54] LABS: CALCIUM 10.2 mg/dL (8.5-10.1); CREATININE 1.3 mg/dL (0.6-1.0); POTASSIUM 3.1 mmol/L (3.5-5.1)
[2020-03-17 19:55] LABS: BASO % 0 % (0-3); EOS % 0 % (0-3); HEMATOCRIT 46.3 % (36.0-47.0); HEMOGLOBIN 16.1 g/dL (12.0-15.5); LYMPH # 2.7 x10^3/uL (1.0-4.8); LYMPH % 21 % (24-48); MEAN CORPUSCULAR HEMOGLOBIN 29 pg (25-35); MEAN CORPUSCULAR HGB CONC 35 g/dL (31-37); MEAN CORPUSCULAR VOLUME 84 fL (79-100); MONO % 8 % (0-9); NEUT # 9.4 x10^3/uL (1.8-7.7); NEUT % 72 % (31-73); PLATELET COUNT 231 x10^3/uL (140-400); RED BLOOD COUNT 5.49 x10^6/uL (3.50-5.40); RED CELL DISTRIBUTION WIDTH 13.3 % (11.5-14.5); WHITE BLOOD COUNT 13.1 x10^3/uL (4.0-11.0)
[2020-03-17 19:56] LABS: PROTHROMBIN TIME PATIENT 13.4 SEC (11.7-14.0)
[2020-03-17 20:01] LABS: ALBUMIN/GLOBULIN RATIO 1.4 (1.0-1.7); TOTAL BILIRUBIN 1.5 mg/dL (0.2-1.0); TOTAL PROTEIN 8.5 g/dL (6.4-8.2)
[2020-03-17] MEDS ORDERED: IOHEXOL 300 MG/ML 100ML VIAL. IV ONE (20:30)
[2020-03-17] MEDS ORDERED: POTASSIUM CHLORIDE 10MEQ 100 ML IV SCH (20:30)
[2020-03-17 20:36] LABS: BILIRUBIN,URINE LARGE (NEG); CLARITY,URINE CLOUDY; COLOR,URINE ORANGE; NITRITE,URINE NEGATIVE (NEG); PH,URINE 5.5 (<5.0-8.0); PROTEIN,URINE 100 mg/dL (NEG-TRACE)
[2020-03-17 20:41] LABS: BACTERIA,URINE FEW /HPF (0-FEW); BARBITURATES NEG (NEG); BENZODIAZEPINES NEG (NEG); CANNABINOIDS POS (NEG); COCAINE NEG (NEG); HYALINE CASTS, URINE FEW /HPF; METHADONE NEG (NEG); OPIATES POS (NEG); PHENCYCLIDINE NEG (NEG); RBC,URINE TNTC /HPF (0-2); SQUAMOUS EPITHELIAL CELL,UR MOD /LPF; WBC,URINE >40 /HPF (0-4)
[2020-03-17] MEDS ORDERED: CONTRAST GIVEN. MC PRN (20:45)
[2020-03-17 20:46] LABS: AMPHETAMINE/METHAMPHETAMINE NEG (NEG)
[2020-03-17] MEDS ORDERED: POTASSIUM CHLORIDE 20 MEQ TABLET.ER. PO ONE (21:00)
--- NOTE | 2020-03-17 21:01 | RAD ---
EXAM: CT Abdomen and Pelvis with IV contrast CLINICAL HISTORY: ABD PAIN, NAUSEA, VOMITING COMPARISON: 09/22/2019 01/29/2017 TECHNIQUE: Helical CT of the abdomen and pelvis was performed following the administration of IV contrast. Axial, coronal and sagittal reformatted images were generated. ---PQRS compliance statement - One or more of the following individualized dose reduction techniques were utilized for this study: 1. Automated exposure control 2. Adjustment of the mA and/or kV according to patient size 3. Use of iterative reconstruction technique--- FINDINGS: Lower chest: Lung bases are clear. Abdomen and pelvis: Liver and biliary system: Focal low-attenuation along the falciform ligament is seen. High density material dependently within the gallbladder likely sludge. No biliary ductal dilatation. Spleen: Unremarkable Pancreas: Unremarkable Adrenal glands: Unremarkable Kidneys: Symmetric nephrograms. No focal renal lesion. No hydronephrosis. No hydroureter. Lymph nodes/retroperitoneum: No abdominal pelvic lymphadenopathy. Vessels: Aorta is normal in caliber. Bowel/Peritoneal cavity: Moderate colonic stool content is seen. No small or large bowel dilatation. No bowel obstruction. Appendix is not convincingly seen. However no significant right lower quadrant pericecal inflammatory change. No abdominal or pelvic ascites. No abdominal or pelvic lymphadenopathy. Abdominal wall: Small fat-containing periumbilical hernia is seen. Bladder: Bladder is grossly unremarkable. Bones: No aggressive osseous lesion is seen. IMPRESSION: Moderate colonic stool content can be correlated for possible constipation. No abnormal small or large bowel dilatation. No bowel obstruction. No suspicious free or loculated abdominal or pelvic collection. Electronically signed by: Bo Regalado MD (03/17/2020 8:59 PM) [facility]
[2020-03-17] MEDS ORDERED: SULF1TAB24 PO (21:12)
[2020-03-17] MEDS ORDERED: PROC25SU21 RC (21:12)
[2020-03-17] MEDS ORDERED: ONDA4TAB12 PO (21:12)
[2020-03-17] MEDS ORDERED: CIPROFLOXACIN 400MG PREMIX 200 ML IV ONE (21:30)
[2020-03-17 22:39] VITALS: BP 140/88
== END 2020-03-17 22:48 | disposition home or self-care (01) ==
LOC: ER 18:44
DX: N39.0 Urinary tract infection, site not specified (principal); R31.9 Hematuria, unspecified; R11.2 Nausea with vomiting, unspecified; F12.90 Cannabis use, unspecified, uncomplicated; R10.84 Generalized abdominal pain; E86.0 Dehydration; F41.9 Anxiety disorder, unspecified; F17.200 Nicotine dependence, unspecified, uncomplicated; Z98.890 Other specified postprocedural states; Z88.0 Allergy status to penicillin; Z91.018 Allergy to other foods
CPT/HCPCS: 36415; 74177; 80053; 80307; 81001; 83690; 85025; 85610; 87086; 96361; 96365; 96375; 99285; J0744; J2405; J3480; J7030; Q9967

== ENCOUNTER 2020-10-12 07:23 | Emergency (ER) | payer MEDICAID ==
[~2020-10-12] VITALS: Ht 162.6 cm; Wt 84.3 kg
[~2020-10-12 07:23] MED LIST changes: +ONDA4TAB12 PO; +PROC25SU21 RC; +SULF1TAB24 PO
[2020-10-12 08:06] LABS: BILIRUBIN,URINE SMALL (NEG); CLARITY,URINE CLOUDY; COLOR,URINE AMBER; NITRITE,URINE NEGATIVE (NEG); PROTEIN,URINE 100 mg/dL (NEG-TRACE); UROBILINOGEN,URINE 0.2 mg/dL (0.2 mg/dL)
[2020-10-12 08:13] LABS: BACTERIA,URINE MODERATE /HPF (0-FEW); WBC,URINE >40 /HPF (0-4)
[2020-10-12 08:14] LABS: RBC,URINE OCC /HPF (0-2); TRICHOMONAS,URINE PRESENT
[2020-10-12 08:24] LABS: BASO % 0 % (0-3); EOS % 0 % (0-3); HEMATOCRIT 34.4 % (36.0-47.0); HEMOGLOBIN 11.7 g/dL (12.0-15.5); LYMPH # 1.3 x10^3/uL (1.0-4.8); LYMPH % 9 % (24-48); MEAN CORPUSCULAR HEMOGLOBIN 29 pg (25-35); MEAN CORPUSCULAR HGB CONC 34 g/dL (31-37); MEAN CORPUSCULAR VOLUME 86 fL (79-100); MONO # 0.5 x10^3/uL (0.0-1.1); MONO % 3 % (0-9); NEUT # 13.3 x10^3/uL (1.8-7.7); NEUT % 88 % (31-73); PLATELET COUNT 249 x10^3/uL (140-400); RED BLOOD COUNT 4.02 x10^6/uL (3.50-5.40); RED CELL DISTRIBUTION WIDTH 13.8 % (11.5-14.5); WHITE BLOOD COUNT 15.1 x10^3/uL (4.0-11.0)
[2020-10-12] MEDS ORDERED: IV NORMAL SALINE 1000ML BAG 1,000 ML IV ONE (08:30)
[2020-10-12] MEDS ORDERED: METOCLOPRAMIDE HCL 10 MG/2 ML VIAL. IVP ONE (08:30)
[2020-10-12 08:34] LABS: CALCIUM 9.1 mg/dL (8.5-10.1); CREATININE 0.7 mg/dL (0.6-1.0); GFR 120.6; POTASSIUM 3.1 mmol/L (3.5-5.1)
[2020-10-12 08:40] LABS: ALBUMIN 3.2 g/dL (3.4-5.0); ALBUMIN/GLOBULIN RATIO 0.8 (1.0-1.7); MAGNESIUM 1.8 mg/dL (1.8-2.4); TOTAL BILIRUBIN 0.4 mg/dL (0.2-1.0)
--- NOTE | 2020-10-12 08:58 | PHYS DOC ---
Past Medical History Past Medical History: Anxiety Additional Past Medical Histor: Polycystic Ovary Disease. Past Surgical History: No Surgical History Additional Past Surgical Histo: Cyst removed from lower back. Smoking Status: Current Every Day Smoker Alcohol Use: None Drug Use: Marijuana General Adult EDM: Chief Complaint: VOMITING IN HPI: HPI: Patient is a 29 year old female who is 20 weeks , presented to ER due to nausea vomiting and diarrhea for several days. Patient denies any pelvic pain, no abdominal pain, no vaginal bleeding or discharge. Her OB doctor is at [facility]. Patient is currently on Compazine for nausea. Patient denies any cough or fever, no chest pain, no trouble breathing. Review of Systems: Review of Systems: Constitutional: Denies fever or chills. [] Eyes: Denies change in visual acuity. [] HENT: Denies nasal congestion or sore throat. [] Respiratory: Denies cough or shortness of breath. [] Cardiovascular: Denies chest pain or edema. [] GI: Denies abdominal pain, positive for nausea vomiting and diarrhea [] : Denies dysuria. [] Musculoskeletal: Denies back pain or joint pain. [] Integument: Denies rash. [] Neurologic: Denies headache, focal weakness or sensory changes. [] Endocrine: Denies polyuria or polydipsia. [] Lymphatic: Denies swollen glands. [] Psychiatric: Denies depression or anxiety. [] Heart Score: Risk Factors: Risk Factors: DM, Current or recent (<one month) smoker, HTN, HLP, family history of CAD, obesity. Risk Scores: Score 0 - 3: 2.5% MACE over next 6 weeks - Discharge Home Score 4 - 6: 20.3% MACE over next 6 weeks - Admit for Clinical Observation Score 7 - 10: 72.7% MACE over next 6 weeks - Early Invasive Strategies Current Medications: Current Medications Medications (Trade) Dose Ordered Sig/Kiya Start Time Stop Time Status Last Admin Dose Admin Metoclopramide HCl (Reglan Vial) 10 mg 1X ONCE 10/12/20 08:30 10/12/20 08:31 DC 10/12/20 08:20 10 MG Sodium Chloride 1,000 ml @ 1,000 mls/hr 1X ONCE 10/12/20 08:30 10/12/20 09:29 10/12/20 08:21 1,000 MLS/HR Allergies: Allergies: Allergies Coded Allergies Type Severity Reaction Last Updated Verified Penicillins Allergy Severe Anaphylaxis 10/15/16 Yes coconut Allergy Severe Anaphylaxis 10/15/16 Yes Physical Exam: PE: Constitutional: Well developed, well nourished, no acute distress, non-toxic appearance. [] HENT: Normocephalic, atraumatic, bilateral external ears normal, oropharynx moist, no oral exudates, nose normal. [] Eyes: PERRLA, EOMI, conjunctiva normal, no discharge. [] Neck: Normal range of motion, no tenderness, supple, no stridor. [] Cardiovascular:Heart rate regular rhythm, no murmur [] Lungs & Thorax: Bilateral breath sounds clear to auscultation [] Abdomen: Bowel sounds normal, soft, no tenderness, no masses, no pulsatile masses. [] Skin: Warm, dry, no erythema, no rash. [] Back: No tenderness, no CVA tenderness. [] Extremities: No tenderness, no cyanosis, no clubbing, ROM intact, no edema. [] Neurologic: Alert and oriented X 3, normal motor function, normal sensory fun ction, no focal deficits noted. [] Psychologic: Affect normal, judgement normal, mood normal. [] Current Patient Data: Labs: Laboratory Tests Test 10/12/20 07:50 10/12/20 08:02 10/12/20 08:16 Urine Collection Type Unknown Urine Color Marcela Urine Clarity Cloudy Urine pH 8.0 (<5.0-8.0) Urine Specific Gregory 1.025 (1.000-1.030) Urine Protein 100 mg/dL (NEG-TRACE) Urine Glucose (UA) Negative mg/dL (NEG) Urine Ketones (Stick) 15 mg/dL (NEG) Urine Blood Negative (NEG) Urine Nitrite Negative (NEG) Urine Bilirubin Small (NEG) Urine Urobilinogen Dipstick 0.2 mg/dL (0.2 mg/dL) Urine Leukocyte Esterase Large (NEG) Urine RBC Occ /HPF (0-2) Urine WBC >40 /HPF (0-4) Urine Squamous Epithelial Cells Mod /LPF Urine Bacteria Moderate /HPF (0-FEW) Urine Mucus Slight /LPF Urine Trichomonas Present POC Urine HCG, Qualitative Hcg positive (Negative) White Blood Count 15.1 x10^3/uL (4.0-11.0) H Red Blood Count 4.02 x10^6/uL (3.50-5.40) Hemoglobin 11.7 g/dL (12.0-15.5) L Hematocrit 34.4 % (36.0-47.0) L Mean Corpuscular Volume 86 fL (79-100) Mean Corpuscular Hemoglobin 29 pg (25-35) Mean Corpuscular Hemoglobin Concent 34 g/dL (31-37) Red Cell Distribution Width 13.8 % (11.5-14.5) Platelet Count 249 x10^3/uL (140-400) Neutrophils (%) (Auto) 88 % (31-73) H Lymphocytes (%) (Auto) 9 % (24-48) L Monocytes (%) (Auto) 3 % (0-9) Eosinophils (%) (Auto) 0 % (0-3) Basophils (%) (Auto) 0 % (0-3) Neutrophils # (Auto) 13.3 x10^3/uL (1.8-7.7) H Lymphocytes # (Auto) 1.3 x10^3/uL (1.0-4.8) Monocytes # (Auto) 0.5 x10^3/uL (0.0-1.1) Eosinophils # (Auto) 0.0 x10^3/uL (0.0-0.7) Basophils # (Auto) 0.0 x10^3/uL (0.0-0.2) Platelet Estimate Pending Sodium Level 133 mmol/L (136-145) L Potassium Level 3.1 mmol/L (3.5-5.1) L Chloride Level 97 mmol/L (98-107) L Carbon Dioxide Level 22 mmol/L (21-32) Anion Gap 14 (6-14) Blood Urea Nitrogen 8 mg/dL (7-20) Creatinine 0.7 mg/dL (0.6-1.0) Estimated GFR (Cockcroft-Gault) 120.6 BUN/Creatinine Ratio 11 (6-20) Glucose Level 102 mg/dL (70-99) H Calcium Level 9.1 mg/dL (8.5-10.1) Magnesium Level 1.8 mg/dL (1.8-2.4) Total Bilirubin 0.4 mg/dL (0.2-1.0) Aspartate Amino Transferase (AST) 20 U/L (15-37) Alanine Aminotransferase (ALT) 45 U/L (14-59) Alkaline Phosphatase 68 U/L (46-116) Total Protein 7.0 g/dL (6.4-8.2) Albumin 3.2 g/dL (3.4-5.0) L Albumin/Globulin Ratio 0.8 (1.0-1.7) L Laboratory Tests 10/12/20 08:16 Laboratory Tests 10/12/20 08:16 Vital Signs: Vital Signs Date Time Temp Pulse Resp B/P (MAP) Pulse Ox O2 Delivery O2 Flow Rate FiO2 10/12/20 07:33 97.9 74 16 104/62 (76) 98 Room Air 97.9 EKG: EKG: [] Radiology/Procedures: Radiology/Procedures: [] Course & Med Decision Making: Course & Med Decision Making Pertinent Labs and Imaging studies reviewed. (See chart for details) heart tone is 156 bpm. [employer] Disclaimer: [employer] Disclaimer: This electronic medical record was generated, in whole or in part, using a voice recognition dictation system. Departure Departure Impression: Primary Impression: UTI (urinary tract infection) Additional Impressions: Gastroenteritis Trichomoniasis Disposition: 01 DC HOME SELF CARE/HOMELESS Condition: STABLE Referrals: UNKNOWN PCP NAME (PCP) Patient Instructions: Trichomoniasis, Urinary Tract Infection, Viral Gastroenteritis Additional Instructions: Thank you for visiting our Emergency Department. We appreciate you trusting us with your care. If any additional problems come up don't hesitate to return to visit us. Please follow up with your primary care provider so they can plan additional care if needed and know about the problem that you had. If symptoms worsen come back to the Emergency Department. Any concerning symptoms that start such as chest pain, shortness of air, weakness or numbness on one side of the body, running high fevers or any other concerning symptoms return to the ER. Scripts Metoclopramide Hcl (REGLAN) 10 Mg Tablet 1 TAB PO QID PRN for NAUSEA for 7 Days, #30 TAB 0 Refills before food and bedtime Prov: MARIBEL VICTOR DO 10/12/20 Nitrofurantoin Monohyd/M-Cryst (MACROBID 100 MG CAPSULE) 100 Mg Capsule 1 CAP PO BID for 10 Days, #20 CAP 0 Refills Prov: MARIBEL VICTOR DO 10/12/20 Metronidazole (METROGEL-VAGINAL) 70 Gm Gel.w.appl 1 APPFUL VG QHS for 5 Days, #1 EACH 0 Refills Prov: MARIBEL VICTOR DO 10/12/20 MARIBEL VICTOR DO Oct 12, 2020 08:58
[2020-10-12 09:02] LABS: % BANDS 1 % (0-9); % LYMPHS 12 % (24-48); % MONOS 2 % (0-10); % SEGS 85 % (35-66)
[2020-10-12 09:03] LABS: PLT ESTIMATE ADEQUATE (ADEQUATE)
[2020-10-12] MEDS ORDERED: POTASSIUM CHLORIDE 10 MEQ TABLET.ER. PO ONE (09:30)
[2020-10-12] MEDS ORDERED: METO10TA81 PO ×2 (10:03→10:04)
[2020-10-12] MEDS ORDERED: NITR100C62 PO (10:03)
[2020-10-12] MEDS ORDERED: METR70GE14 VG (10:03)
[2020-10-12 10:40] VITALS: BP 102/61
== END 2020-10-12 10:51 | disposition home or self-care (01) ==
LOC: ER 07:23
DX: O23.42 Unspecified infection of urinary tract in pregnancy, second trimester (principal); K52.9 Noninfective gastroenteritis and colitis, unspecified; A59.9 Trichomoniasis, unspecified; O99.332 Smoking (tobacco) complicating pregnancy, second trimester; Z3A.20 20 weeks gestation of pregnancy; Z88.0 Allergy status to penicillin; Z91.018 Allergy to other foods
CPT/HCPCS: 36415; 80053; 81001; 81025; 83735; 85007; 85025; 87086; 96361; 96374; 99283; J2765; J7030

== ENCOUNTER → 2021-03-27 | Outpatient (CLI) | payer OTHER ==
[~2021-03-27] MED LIST changes: +DOXY-181 PO; -DOXY100C14 PO; +METO10TA81 PO; +METR70GE14 VG; +NITR100C62 PO
--- NOTE | 2021-03-27 14:06 | RAD ---
EXAM: Lumbar spine, 2 views. HISTORY: Pain. COMPARISON: None. FINDINGS: 2 views of the lumbar spine are obtained. There is mild lumbar levoscoliosis centered at L2 . There is no significant listhesis. The vertebral bodies are normal in height. IMPRESSION: 1. Mild lumbar scoliosis. 2. No acute osseous finding. Electronically signed by: Simran Guardado MD (03/27/2021 2:03 PM) [email or web address]
== END ==
LOC: RAD 13:12
PROVIDERS: ATTEND Surgery
DX: Z02.71 Encounter for disability determination (principal); M41.86 Other forms of scoliosis, lumbar region
CPT/HCPCS: 72100